=== PATIENT | female | born 1965 ===

== ENCOUNTER 2016-10-21 08:38 | Day surgery (SDC) | payer OTHER ==
[2016-10-21 09:59] VITALS: BMI 28.3
[2016-10-21] MEDS ORDERED: Lactated Ringer's 1,000 ML IV ONE (10:38)
[2016-10-21] MEDS ORDERED: Propofol 10 mg/ml Inj (20 ML) ONE (10:39)
[2016-10-21 11:29] VITALS: TEMP 97.3
[2016-10-21 11:32] VITALS: RESP 18
[2016-10-21 11:46] VITALS: BP 111/69; PULSE 63; O2SAT 100
== END 2016-10-21 11:43 | disposition home or self-care (01) ==
LOC: C.ENDO 08:38
PROVIDERS: ATTEND Internal Medicine Gastroenterology
DX: K64.8 Other hemorrhoids (principal)
CPT/HCPCS: 45378; J2704; J7120